=== PATIENT | male | born 1940 | race Caucasian/White ===

== ENCOUNTER → 2017-08-01 | Outpatient (CLI) | payer OTHER ==
[~2017-08-01] MED LIST: ACET500T76 PO; APIX5TAB PO; ATOR20TA9 PO; DOFE500C PO; FERR-51 PO; GABA300C10 PO; MAGN400C PO; METO25TA35 PO; OMEP20TA62 PO; OXYC5CAP2 PO; POTA10TA17 PO; TERA2CAP3 PO; TOPI100T8 PO
[2017-08-01 12:28] LABS: BASOPHILS # (AUTO) 0.03 x10^3/uL (0-0.1); BASOPHILS % (AUTO) 1 % (0-1); EOSINOPHILS # (AUTO) 0.19 x10^3/uL (0-0.4); EOSINOPHILS % (AUTO) 4 % (1-7); LYMPHOCYTES # (AUTO) 1.04 x10^3/uL (1-3.4); LYMPHOCYTES % (AUTO) 21 % (22-44); MD NO; MEAN CORPUSCULAR HEMOGLOBIN 30.5 pg (27.5-34.5); MEAN CORPUSCULAR HGB CONC 32.4 g/dL (33.2-36.2); MEAN CORPUSCULAR VOLUME 94.2 fL (81-97); MEAN PLATELET VOLUME 9.6 fL (7.4-10.4); MONOCYTES # (AUTO) 0.52 x10^3/uL (0.2-0.8); MONOCYTES % (AUTO) 11 % (2-9); NEUTROPHILS # (AUTO) 3.14 x10^3/uL (1.8-6.8); NEUTROPHILS % (AUTO) 64 % (42-75); PLATELET COUNT 184 x10^3/uL (130-400); RED BLOOD COUNT 3.95 x10^6/uL (4.38-5.82); RED CELL DISTRIBUTION WIDTH 15.8 % (9.4-14.8)
[2017-08-01 12:39] LABS: ALBUMIN 3.2 g/dL (3.4-5.0); ANION GAP 5 mmol/L (5-15); CALCIUM 8.3 mg/dL (8.5-10.1); CHLORIDE 116 mmol/L (98-107)
[2017-08-01 12:42] LABS: ALANINE AMINOTRANSFERASE 13 U/L (12-78); ALKALINE PHOSPHATASE 88 U/L (45-117); BILIRUBIN,TOTAL 0.4 mg/dL (0.2-1.0); CREATININE 1.45 mg/dL (0.7-1.3); TOTAL PROTEIN 6.8 g/dL (6.4-8.2)
== END | disposition home or self-care (01) ==
LOC: STAR 10:53
PROVIDERS: ATTEND Internal Medicine
DX: Z01.818 Encounter for other preprocedural examination (principal); D13.1 Benign neoplasm of stomach
CPT/HCPCS: 36415; 80053; 85025; 93005

== ENCOUNTER 2017-08-05 10:08 | Day surgery (SDC) | payer OTHER ==
[2017-08-01 11:50] VITALS: BP 151/83
[~2017-08-05] VITALS: Ht 177.8 cm; Wt 66.8 kg
[2017-08-05] MEDS ORDERED: LACTATED RINGERS 1,000 ML IV SCH (10:39)
[2017-08-05] MEDS ORDERED: ONDANSETRON 2MG/ML, 2ML IVPush PRN (12:00)
[2017-08-05] MEDS ORDERED: OXYcodone 5 MG/5 ML ORAL.SOL UDC PO PRN (12:00)
[2017-08-05] MEDS ORDERED: FENTANYL PF 100 MCG/2ML IV PRN (12:00)
[2017-08-05] MEDS ORDERED: HYDROcodone/APAP 7.5-325MG/15ML UDC PO PRN (12:00)
[2017-08-05] MEDS ORDERED: PROPOFOL 10 MG/ML, 20ML ONE ×2 (12:27)
[2017-08-05] MEDS ORDERED: LIDOCAINE-MPF 2% ,5ML ONE (12:27)
== END 2017-08-05 14:45 ==
LOC: OUT 10:08
PROVIDERS: ATTEND Internal Medicine
DX: D13.1 Benign neoplasm of stomach (principal); I25.10 Atherosclerotic heart disease of native coronary artery without angina pectoris; I10 Essential (primary) hypertension; I48.91 Unspecified atrial fibrillation; Z90.3 Acquired absence of stomach [part of]; Z86.73 Personal history of transient ischemic attack (TIA), and cerebral infarction without residual deficits
CPT/HCPCS: 43251; 43259; 88305; 99156; 99157; J2704; J3490; J7120